=== PATIENT | female | born 1955 | race Caucasian/White ===

== ENCOUNTER 2017-07-24 19:00 | Emergency (ER) | payer BC ==
[~2017-07-24] VITALS: Ht 172.7 cm; Wt 102.5 kg
[2017-07-24 19:01] VITALS: BP 191/72; PULSE 97; RESP 16; TEMP 99; O2SAT 94
--- NOTE | 2017-07-24 19:25 | PD ---
HPI Chief Complaint: Respiratory Symptoms Time Seen by Provider: 19:22 Travel History International Travel<30 days: No Contact w/Intl Traveler<30days: No Traveled to known affect area: No History of Present Illness HPI 62-year-old female patient with history of smoking, bronchitis, presents to the ER today for shortness of breath, coughing, worsening today. She states that she has chest discomfort with deep breath. She denies any fevers, vomiting, or other symptoms. She states that she happens to be on a course of antibiotics for UTI currently but does not remember the name of the antibiotic. Modifying Factors: None Associated Signs & Symptoms: Coughing, shortness of breath Risk Factors: Bronchitis history, smoking PFSH Past Medical History Bipolar Disorder: Yes Depression: Yes Psychiatric: Yes Respiratory: Yes (bronchitis) Pneumonia: Yes Tetanus Vaccination: < 5 Years Influenza Vaccination: Yes ?: Not Past Surgical History Cholecystectomy: Yes Ear Surgery: Yes Hysterectomy: Yes Social History Alcohol Use: No Tobacco Use: Yes (1PPD) Substance Use: No Allergies-Medications (Allergen,Severity, Reaction): Coded Allergies: No Known Drug Allergies (Verified Allergy, Unknown, 07/24/17) Review of Systems Except as stated in HPI: all other systems reviewed are Neg Physical Exam Narrative GENERAL: Well-developed elderly white female patient currently in mild distress. Awake and oriented 3. SKIN: Focused skin assessment warm/dry. HEAD: Atraumatic. Normocephalic. EYES: Pupils equal and round. No scleral icterus. No injection or drainage. ENT: No nasal bleeding or discharge. Mucous membranes pink and moist. NECK: Trachea midline. No JVD. CARDIOVASCULAR: Regular rate and rhythm. No murmur appreciated. RESPIRATORY: No accessory muscle use. Decreased throughout bilaterally. Breath sounds equal bilaterally. GASTROINTESTINAL: Abdomen soft, non-tender, nondistended. Hepatic and splenic margins not palpable. MUSCULOSKELETAL: No obvious deformities. No clubbing. No cyanosis. No edema. NEUROLOGICAL: Awake and alert. No obvious cranial nerve deficits. Motor grossly within normal limits. Normal speech. PSYCHIATRIC: Appropriate mood and affect; insight and judgment normal. Data Data Last Documented VS Vital Signs Date Time Temp Pulse Resp B/P (MAP) Pulse Ox O2 Delivery O2 Flow Rate FiO2 07/24/17 19:29 94 Room Air 07/24/17 19:01 99.0 97 16 191/72 (111) Orders Orders Ecg Monitoring (1/27/18 19:22) Oximetry (07/24/17 19:22) Oxygen Administration (07/24/17 19:22) Chest, Single Ap (07/24/17 19:22) Albuterol-Ipratropium Neb (Duoneb Neb) (07/24/17 19:30) Prednisone (Deltasone) (07/24/17 19:30) Albuterol Neb (Albuterol Neb) (07/24/17 20:00) Complete Blood Count With Diff (07/24/17 20:03) Basic Metabolic Panel (Bmp) (07/24/17 20:03) B-Type Natriuretic Peptide (07/24/17 20:03) Blood Culture (07/24/17 20:03) Lactic Acid Sepsis Protocol (07/24/17 20:03) Ceftriaxone Inj (Rocephin Inj) (07/24/17 21:20) Azithromycin Inj (Zithromax Inj) (07/24/17 21:20) Labs Laboratory Tests Test 07/24/17 20:15 White Blood Count 23.0 TH/MM3 Red Blood Count 3.95 MIL/MM3 Hemoglobin 12.0 GM/DL Hematocrit 36.8 % Mean Corpuscular Volume 93.2 FL Mean Corpuscular Hemoglobin 30.3 PG Mean Corpuscular Hemoglobin Concent 32.5 % Red Cell Distribution Width 13.6 % Platelet Count 404 TH/MM3 Mean Platelet Volume 8.6 FL Neutrophils (%) (Auto) 77.4 % Lymphocytes (%) (Auto) 11.7 % Monocytes (%) (Auto) 8.7 % Eosinophils (%) (Auto) 1.9 % Basophils (%) (Auto) 0.3 % Neutrophils # (Auto) 17.8 TH/MM3 Lymphocytes # (Auto) 2.7 TH/MM3 Monocytes # (Auto) 2.0 TH/MM3 Eosinophils # (Auto) 0.4 TH/MM3 Basophils # (Auto) 0.1 TH/MM3 CBC Comment DIFF FINAL Differential Comment Blood Urea Nitrogen 14 MG/DL Creatinine 1.20 MG/DL Random Glucose 138 MG/DL Calcium Level 10.4 MG/DL Sodium Level 136 MEQ/L Potassium Level 3.8 MEQ/L Chloride Level 100 MEQ/L Carbon Dioxide Level 25.6 MEQ/L Anion Gap 10 MEQ/L Estimat Glomerular Filtration Rate 46 ML/MIN Lactic Acid Level 2.4 mmol/L B-Type Natriuretic Peptide 26 PG/ML MDM Medical Decision Making Medical Screen Exam Complete: Yes Emergency Medical Condition: Yes Medical Record Reviewed: Yes Interpretation(s) Laboratory Tests Test 07/24/17 20:15 White Blood Count 23.0 TH/MM3 (4.0-11.0) Red Blood Count 3.95 MIL/MM3 (4.00-5.30) Neutrophils (%) (Auto) 77.4 % (16.0-70.0) Monocytes (%) (Auto) 8.7 % (0.0-8.0) Neutrophils # (Auto) 17.8 TH/MM3 (1.8-7.7) Monocytes # (Auto) 2.0 TH/MM3 (0-0.9) Creatinine 1.20 MG/DL (0.50-1.00) Random Glucose 138 MG/DL (74-106) Calcium Level 10.4 MG/DL (8.5-10.1) Estimat Glomerular Filtration Rate 46 ML/MIN (>89) Lactic Acid Level 2.4 mmol/L (0.4-2.0) Last 24 hours Impressions Chest X-Ray 07/24/171921 Signed Impressions: Service Date/Time: Monday, July 24, 2017 19:42 - CONCLUSION: Early/mild bibasilar pneumonia suspected in the proper clinical setting. A viral or atypical pneumonia would be in the differential. Otf Gonzalez MD Differential Diagnosis Coughing, shortness of breath: Bronchitis versus COPD exacerbation versus pneumonia Narrative Course Patient was initiated on prednisone, DuoNeb's in the ER, and chest x-ray and workup was initiated. Chest x-rays showing signs of bibasilar infiltrates indicative of underlying pneumonia. Her white count is 23, and her lactate is 2.4. There is concern here of worsening pneumonia. She was treated with several DuoNeb's in the ER without significant improvement in her oxygenation. She states that symptomatically she did feel better. At this point, considering her leukocytosis and lactate levels as well as pneumonia, IV anthrax were initiated after cultures are drawn and I have talked to the patient regarding admission. However, the patient is from [place] and visiting the area, is declining admission at this time. Patient is on Macrobid for UTI. There is concern here that she may do poorly as an outpatient and I have warned her regarding this possibility as well but she states understanding and wants to go home and be treated as an outpatient. My plan would be to treat her for COPD exacerbation as well as pneumonia. She should return for any worsening in symptoms. The plan was discussed with her and the risks were discussed with her and she is expressing a 1 for outpatient therapy rather than being admitted to the hospital. She states understanding of risk of decompensation including respiratory failure, , sepsis and septic shock. Diagnosis Primary Impression: Pneumonia Med/Other Pt SpecificInfo: Prescription(s) given Scripts Albuterol 6.7 GM Inh (Proventil Hfa 6.7 GM Inh) 90 Mcg/Act Aer 2 PUFF INH Q4-6H Y for SHORTNESS OF BREATH, #1 INHALER 0 Refills Prov: Shay Ko MD 07/24/17 Methylprednisolone Dosepak (Medrol Dosepak) 4 Mg Dspk 4 MG PO DIRECTED, #1 DSPK 0 Refills Per Pharmacist direction Prov: Shay Ko MD 07/24/17 Levofloxacin (Levofloxacin) 750 Mg Tablet 750 MG PO DAILY for Infection for 7 Days, #7 TAB 0 Refills Prov: Shay Ko MD 07/24/17 Disposition: 01 DISCHARGE HOME Condition: Stable Shay Ko MD Jul 24, 2017 19:25
[2017-07-24] MEDS ORDERED: predniSONE 50 MG TAB PO ONE (19:30)
[2017-07-24] MEDS: RESP: ALBUTEROL 2.5 MG/IPRATROPIUM 0.5 MG NEB (SCH) INH (19:32)
--- NOTE | 2017-07-24 19:53 | RADRPT ---
EXAM DATE/TIME: 07/24/2017 19:42 [facility] COMPARISON: No previous studies available for comparison. INDICATIONS : Short of breath. MEDICAL HISTORY : None. SURGICAL HISTORY : None. ENCOUNTER: Initial ACUITY: 3 days PAIN SCORE: 2/10 LOCATION: Bilateral chest FINDINGS: Thank consolidation seen in both bases, right slightly worse than left. No dense or confluent consoli dation. No pleural effusion or pneumothorax. Heart size within normal limits. CONCLUSION: Early/mild bibasilar pneumonia suspected in the proper clinical setting. A viral or atypical pneumoni a would be in the differential. Otf Gonzalez MD on July 24, 2017 at 19:50 Board Certified Radiologist. This report was verified electronically.
[2017-07-24] MEDS: RESP: ALBUTEROL 2.5 MG/3 ML NEB (SCH) INH ×2 (19:59→20:00)
[2017-07-24 20:00] VITALS: O2SAT 94
[2017-07-24 21:06] LABS: AUTOMATED NEUTROPHIL # 17.8 TH/MM3 (1.8-7.7); BASOPHIL # 0.1 TH/MM3 (0-0.2); BASOPHIL % 0.3 % (0.0-2.0); EOSINOPHIL # 0.4 TH/MM3 (0-0.4); EOSINOPHIL % 1.9 % (0.0-4.0); HEMATOCRIT 36.8 % (35.0-46.0); LYMPH % 11.7 % (9.0-44.0); LYMPHOCYTE # 2.7 TH/MM3 (1.0-4.8); MEAN CELL VOLUME 93.2 FL (80.0-100.0); MEAN CORPUSCULAR HEMOGLOBIN 30.3 PG (27.0-34.0); MEAN CORPUSCULAR HGB CONC 32.5 % (32.0-36.0); MEAN PLATELET VOLUME 8.6 FL (7.0-11.0); MONO % 8.7 % (0.0-8.0); NEUT % 77.4 % (16.0-70.0); PLATELET COUNT 404 TH/MM3 (150-450); RED BLOOD COUNT 3.95 MIL/MM3 (4.00-5.30); RED CELL DISTRIBUTION WIDTH 13.6 % (11.6-17.2)
[2017-07-24 21:19] LABS: BICARBONATE 25.6 MEQ/L (21.0-32.0); CALCIUM 10.4 MG/DL (8.5-10.1); CREATININE 1.2 MG/DL (0.50-1.00)
[2017-07-24] MEDS ORDERED: cefTRIAXone INJ 2,000 MG in SODIUM CHLORIDE 0.9% INJ 100 ML IV STA (21:20)
[2017-07-24] MEDS ORDERED: AZITHROMYCIN INJ 500 MG in SODIUM CHLOR 0.9% 250 ML INJ 250 ML IV STA (21:20)
[2017-07-24 21:23] LABS: LACTIC ACID SEPSIS PROTOCOL 2.4 mmol/L (0.4-2.0)
[2017-07-24] MEDS ORDERED: ALBU6.7H INH (21:58)
[2017-07-24] MEDS ORDERED: LEVO750T3 PO (21:58)
[2017-07-24] MEDS ORDERED: MEDR4PAK PO (21:58)
[2017-07-24 23:00] VITALS: BP 174/71; PULSE 76; RESP 16; O2SAT 93
== END 2017-07-24 23:38 | disposition home or self-care (01) ==
LOC: NEPC 19:00
DX: J18.9 Pneumonia, unspecified organism (principal); F17.200 Nicotine dependence, unspecified, uncomplicated
CPT/HCPCS: 71045; 80048; 83605; 83880; 85025; 87040; 94640; 94664; 96365; 96375; 99284; J0456; J0696; J7050; J7512; J7613